=== PATIENT | female | born 1980 | race African-American/Black ===

== ENCOUNTER → 2018-07-31 09:06 | Outpatient (CLI) | payer OTHER, SELFPAY ==
--- NOTE | 2018-07-31 | DI.MRI.S_ITS ---
PROCEDURE: MR PELVIS WO CON INDICATIONS: INTRAMURAL LEIOMYOMA OF UTERUS TECHNIQUE: Coronal HASTE, sagittal breath-hold T2 FSE; axial T1 FSE with and without fat saturation through the pelvis. Optional long- and short-axis uterine nonbreath-hold T2 FSE through the uterus. Sagittal or axial dynamic VIBE during administration of contrast. Post-contrast axial or coronal VIBE/2-D FLASH with fat saturation from the iliac crests to the symphysis. Optional diffusion weighted imaging and ADC may be performed. COMPARISON: None. FINDINGS: Image quality: Excellent. Uterus: Uterus is normal in size. Endometrium is normal in thickness. Junctional zone is normal in thickness at 12 mm or less. No made of a homogeneously enhancing presumed uterine fibroid centered to the posterior left margin of the endometrial lining which is displaced rightward and anteriorly by this mass. No adjacent adenopathy or evidence of adnexal lesion. No internal calcifications involving this structure are seen. This measures up to 6.9 cm AP, 6.9 cm transverse and 7.1 cm craniocaudad. Adnexa: Both ovaries are normal in size, without suspicious cystic or solid lesions. Urinary system: Bladder wall is normal in thickness. Distal ureters are non distended. Urethra appears normal in morphology. Nodes and vessels: No pelvic or inguinal adenopathy by size criteria. Iliac vessels are normal in size. Bowel and peritoneum: No pathologic free pelvic fluid. Inferior colon and small bowel loops are normal in caliber. Soft tissues: No inguinal hernias. No findings of pelvic floor incompetence in the absence of provocation. Bones: Marrow demonstrates normal overall signal. IMPRESSION: Single large left posterior uterine fibroid is the presumed cause for the homogeneously enhancing mass lesion within the myometrium, distorting and displacing the endometrial lining and junctional zone rightward and anteriorly. No abnormal fluid collection within the endometrial space is found. The adnexal structures appear normal other than displacement to a moderate degree by the enlargement of the uterus secondary to this structure. Dictated by: Jin Leyva M.D. on 07/31/2018 at 15:26 Approved by: Jin Leyva M.D. on 07/31/2018 at 15:29
== END ==
PROVIDERS: Visit Provider Obstetrics & Gynecology
DX: D25.1 Intramural leiomyoma of uterus (principal)
CPT/HCPCS: 72195